=== PATIENT | male | born 1995 | race Caucasian/White ===

== ENCOUNTER 2017-04-10 17:39 | Emergency (ER) | payer OTHER ==
[~2017-04-10] VITALS: Ht 180.3 cm; Wt 83.9 kg
[~2017-04-10 17:39] MED LIST: ALBU90OI INH; IBUP100S; ONDA4 PO; Prednisone20 MG PO
[2017-10-17] MEDS ORDERED: Vibramycin100 MG PO (00:45)
[2017-10-17] MEDS ORDERED: Zovirax400 MG PO (00:45)
[2018-01-03] MEDS ORDERED: Norco 5-325 Ta1 EACH PO (01:09)
[2018-01-03] MEDS ORDERED: Flomax0.4 MG PO (01:09)
[2018-01-03] MEDS ORDERED: Zofran Odt4 MG SL (01:09)
== END 2017-04-10 20:15 | disposition left against medical advice (07) ==
LOC: ER 17:39
DX: Z53.21 Procedure and treatment not carried out due to patient leaving prior to being seen by health care provider (principal)
CPT/HCPCS: 99281

== ENCOUNTER 2018-12-02 21:06 | Emergency (ER) | payer OTHER ==
[~2018-12-02] VITALS: Ht 175.3 cm; Wt 95.2 kg
[~2018-12-02 21:06] MED LIST changes: +Flomax0.4 MG PO; +Norco 5-325 Ta1 EACH PO; +Vibramycin100 MG PO; +Zofran Odt4 MG SL; +Zovirax400 MG PO
[2018-12-02] MEDS ORDERED: Cleocin HCl300 MG PO (22:03)
== END 2018-12-02 22:20 | disposition home or self-care (01) ==
LOC: ER 21:06
DX: L02.216 Cutaneous abscess of umbilicus (principal); L03.316 Cellulitis of umbilicus; Z88.0 Allergy status to penicillin; F17.210 Nicotine dependence, cigarettes, uncomplicated
CPT/HCPCS: 10160; 99283-25; A9270

== ENCOUNTER 2021-08-05 00:38 | Emergency (ER) | payer OTHER ==
[~2021-08-05] VITALS: Ht 175.3 cm; Wt 104.3 kg
[~2021-08-05 00:38] MED LIST changes: +Cleocin HCl300 MG PO
== END 2021-08-05 02:38 | disposition home or self-care (01) ==
LOC: ER 00:38
DX: S02.5XXA Fracture of tooth (traumatic), initial encounter for closed fracture (principal); X58.XXXA Exposure to other specified factors, initial encounter; F17.210 Nicotine dependence, cigarettes, uncomplicated; Z88.0 Allergy status to penicillin
CPT/HCPCS: 99282

== ENCOUNTER 2022-02-21 20:04 | Emergency (ER) | payer OTHER ==
[~2022-02-21] VITALS: Ht 177.8 cm; Wt 131.5 kg
[2022-02-21] MEDS ORDERED: CLIN150 PO (21:12)
== END 2022-02-21 21:26 | disposition home or self-care (01) ==
LOC: ER 20:04
DX: L03.311 Cellulitis of abdominal wall (principal); L03.316 Cellulitis of umbilicus; Z88.0 Allergy status to penicillin; F17.210 Nicotine dependence, cigarettes, uncomplicated
CPT/HCPCS: A9270

== ENCOUNTER 2023-08-14 08:53 | Emergency (ER) | payer OTHER ==
[~2023-08-14] VITALS: Ht 175.3 cm; Wt 104.3 kg
[~2023-08-14 08:53] MED LIST changes: +CLIN150 PO
[2023-08-14 09:40] VITALS: BP 131/74
[2023-08-14] MEDS ORDERED: CLIN150 PO (10:19)
== END 2023-08-14 10:25 | disposition home or self-care (01) ==
LOC: ER 08:53
DX: L02.216 Cutaneous abscess of umbilicus (principal); F17.210 Nicotine dependence, cigarettes, uncomplicated; Z88.0 Allergy status to penicillin
CPT/HCPCS: 99282